=== PATIENT | female | born 1940 | race Caucasian/White ===

== ENCOUNTER 2017-12-20 12:00 | Outpatient (CLI) | payer MEDICARE, BC | END 2017-12-20 12:01 | disposition home or self-care (01) | LOC: BICMAMMO 12:00 | PROVIDERS: ATTEND Internal Medicine | DX: Z12.31 Encounter for screening mammogram for malignant neoplasm of breast (principal); Z85.3 Personal history of malignant neoplasm of breast; Z98.890 Other specified postprocedural states | CPT/HCPCS: 77063; 77067 ==

== ENCOUNTER 2018-02-20 01:06 | Emergency (ER) | payer MEDICARE, BC ==
[2018-02-20 02:02] LABS: #Eosinphils 0.3 thou/uL (0.0-0.7); #Lymphocytes 0.6 thou/uL (1.20-3.40); #Monocytes 0.8 thou/uL (0.11-0.59); #Neutrophils 13.2 thou/uL (1.40-6.50); %Basophils 0.2 % (0.0-1.0); %Eosinophils 1.8 % (0.0-10.0); %Lymphocytes 3.8 % (21.0-51.0); %Monocytes 5.2 % (0.0-10.0); Hemoglobin 15.1 g/dL (12.0-16.0); Mean Corpuscular HGB CONC 32.7 g/dL (32.0-36.0); Mean Corpuscular Hemoglobin 32.3 pg (27.0-31.0); Mean Platelet Volume 7.2 fL (7.4-10.4); Platelet Count 273 thou/uL (130-400); RBC Distribution Width 11.7 % (11.5-14.5); Red Blood Cell (RBC) Count 4.68 mill/uL (4.20-5.40); White Blood Cell (WBC) Count 14.8 thou/uL (4.8-10.8)
[2018-02-20 02:24] LABS: ALT (SGPT) 31 U/L (8-55); AST (SGOT) 26 U/L (5-34); Albumin 4.3 g/dL (3.4-4.8); Alkaline Phosphatase 64 U/L (40-150); Anion Gap 14 mmol/L (10-20); BUN (Urea Nitrogen) 18 mg/dL (9.8-20.1); Bilirubin, Total 0.8 mg/dL (0.2-1.2); Calc. Creatinine Clearance 0 mL/min (70-130); Calcium 9.7 mg/dL (7.8-10.44); Carbon Dioxide 25 mmol/L (23-31); Chloride 107 mmol/L (98-107); Estimated GFR-MDRD 70; Globulin 3.3 g/dL (2.4-3.5); Glucose 135 mg/dL (83-110); Potassium 4.1 mmol/L (3.5-5.1); Protein, Total 7.6 g/dL (6.0-8.3); Sodium 142 mmol/L (136-145)
[2018-02-20 02:29] LABS: Troponin I Less than 0.010 ng/mL (< 0.028)
[2018-02-20] MEDS ORDERED: Ondansetron ODT 4 MG TAB ONE (03:29)
== END 2018-02-20 05:13 | disposition home or self-care (01) ==
LOC: ERS 01:06
DX: R11.2 Nausea with vomiting, unspecified (principal); E03.9 Hypothyroidism, unspecified; Z79.899 Other long term (current) drug therapy
CPT/HCPCS: 36415; 80053; 82553; 83690; 84484; 85025; 93005; Q0162

== ENCOUNTER 2018-02-26 08:06 | Outpatient (CLI) | payer MEDICARE, BC ==
--- NOTE | 2018-02-26 10:24 | MRI ---
MRI LUMBAR SPINE NONCONTRAST: DATE: 02/26/18 HISTORY: 77-year-old female with M54.16 lumbar radiculopathy, bilateral, and low back pain. COMPARISON: none FINDINGS: For the purposes of this report, it will be assumed that there are 5 lumbar-type vertebrae. The vert ebral body heights are maintained. Conus medullaris terminates at L2-3, at the lower limits of normal. There is mild disc space narrowin g at all levels. No severe disc space narrowing at any level. Mild diffuse disc bulges at all levels. Cauda equina is arranged in a symmetrical distribution throughout the thecal sac. 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 No bone marrow edema. Perivertebral spaces demonstrate no major pathology. The findings by individual levels are as follows: T12-L1: No additional findings. L1-2: No additional findings. L2-3: No central or neural foraminal stenosis. L3-4: Mild ligamentum flavum thickening. Moderate degenerative facet changes. Mild bilateral neural foraminal stenosis, left greater than right. Mild central spinal canal stenosis. Mild to moderate the devika sac stenosis. L4-5: Somewhat prominent diffuse disc bulge. Bilateral severe degenerative facet hypertrophy. Modera te bilateral neural foraminal stenosis. Mild to moderate central spinal canal stenosis. Mild to moder ate ligamentum flavum thickening. L5-S1: Severe right degenerative facet hypertrophy. Moderate to severe left degenerative facet menendez es. No high grade central stenosis. Mild bilateral neural foraminal stenosis. A focal osteophyte campos ing from the left facet complex abuts the left exiting L5 nerve root without adelaide compression, and w ithout edema. IMPRESSION: 1. Lumbar spondylosis consisting of high grade facet osteoarthrosis at the lower levels. 2. Degenerative disc disease is relatively mild. ALEX Moreno POS: [facility]
== END 2018-02-26 08:07 | disposition home or self-care (01) ==
LOC: BICMRI 08:06
PROVIDERS: ATTEND Anesthesiology Pain Medicine
DX: M47.26 Other spondylosis with radiculopathy, lumbar region (principal); M51.16 Intervertebral disc disorders with radiculopathy, lumbar region
CPT/HCPCS: 72148

== ENCOUNTER 2018-09-06 15:21 | Outpatient (CLI) | payer MEDICARE, BC ==
--- NOTE | 2018-09-06 15:54 | ULT ---
Bilateral lower extremity venous Doppler ultrasound evaluation. HISTORY: Bilateral lower extremity edema. Multiple longitudinal and transverse images of the right and left lower extremity venous systems are obtained using multi hertz linear array transducer. Real-time, color flow and spectral waveform Doppler analysis used to evaluate the right and left lower extremity venous systems. No evidence of acute or old clot seen in the right or left common femoral, superficial femoral, femor al profunda, popliteal, posterior tibial veins and right and left greater saphenous veins. IMPRESSION: No evidence of right or left lower extremity deep venous thrombosis Transcribed Date/Time: 09/06/2018 4:02 PM
== END 2018-09-06 15:22 | disposition home or self-care (01) ==
LOC: BICULT 15:21
PROVIDERS: ATTEND Internal Medicine
DX: I82.409 Acute embolism and thrombosis of unspecified deep veins of unspecified lower extremity (principal); R60.0 Localized edema
CPT/HCPCS: 93970

== ENCOUNTER 2019-04-03 13:37 | Outpatient (CLI) | payer MEDICARE, BC ==
--- NOTE | 2019-04-03 14:45 | RAD ---
XR Knee Lt 2 View HISTORY: Bilateral primary osteoarthritis of knee, bilateral knee pain, right worse than left FINDINGS: No fracture or dislocation is identified. Degenerative changes are seen manifested by osteophyte form ation and joint space narrowing most prominent in the medial tibiofemoral and patellofemoral compartments.
--- NOTE | 2019-04-03 14:46 | RAD ---
XR Knee Rt 2 View HISTORY: Bilateral primary osteoarthritis of knee. Bilateral knee pain, worse on the right FINDINGS: No fracture or dislocation is identified. There are degenerative changes manifested by osteophyte for mation and joint space narrowing, most prominent in the medial tibiofemoral and patellofemoral compartments.
--- NOTE | 2019-04-03 15:19 | BD ---
BONE DENSITOMETRY USING DEXA: Date: 04/03/2019 HISTORY: Postmenopausal screening for osteoporosis. FINDINGS: Lumbar Spine: BMD (g/cm2) L1 0.972 T-Score: -0.2 Z-Score: 2.1 L2 1.044 T-Score: 0.1 Z-Score: 2.7 L3 1.080 T-Score: 0.0 Z-Score: 2.6 L4 1.122 T-Score: 0.6 Z-Score: 3.3 L1-L4 1.056 T-Score: 0.1 Z-Score: 2.6 Femoral Neck: 0.804 T-Score: -0.4 Z-Score: 1.8 Total Femur: 0.784 T-Score: -1.3 Z-Score: 0.6 10 year fracture risk for a major osteoporotic fracture is 8.8% and for a hip fracture is 1.1%. IMPRESSION: Osteopenia. POS: [facility]
== END 2019-04-03 13:38 | disposition home or self-care (01) ==
LOC: BICMAMMO 13:37
PROVIDERS: ATTEND Internal Medicine Rheumatology
DX: M81.0 Age-related osteoporosis without current pathological fracture (principal); M17.0 Bilateral primary osteoarthritis of knee; M85.859 Other specified disorders of bone density and structure, unspecified thigh
CPT/HCPCS: 77080

== ENCOUNTER 2019-09-02 15:48 | Outpatient (CLI) | payer MEDICARE, BC ==
--- NOTE | 2019-09-02 16:55 | MMO ---
Bilateral MAMMO Bilat Screen [facility]. CLINICAL HISTORY: Patient is 79 years old and is seen for screening. The patient has a history of lumpectomy procedure revealed invasive ductal left breast carcinoma. The patient has a history of left Excisional Biopsy in 1984 - BENIGN. VIEWS: The views performed were: . FILMS COMPARED: The present examination has been compared to prior imaging studies performed at [facility] on 05/13/2010, 07/20/2011, 07/22/2011 and 12/20/2017. This study has been interpreted with the assistance of computer-aided detection. MAMMOGRAM FINDINGS: The breasts are heterogeneously dense, which could obscure a lesion on mammography. There is a stable post-surgical scar seen in the left breast. There are no suspicious masses, suspicious calcifications, or new areas of architectural distortion. IMPRESSION: THERE IS NO MAMMOGRAPHIC EVIDENCE OF MALIGNANCY. A ROUTINE FOLLOW-UP MAMMOGRAM IN 1 YEAR IS RECOMMENDED. THE RESULTS OF THIS EXAM WERE SENT TO THE PATIENT. ACR BI-RADS Category 2 - Benign finding MAMMOGRAPHY NOTE: 1. A negative mammogram report should not delay a biopsy if a dominant of clinically suspicious mass is present. 2. Approximately 10% to 15% of breast cancers are not detected by mammography. 3. Adenosis and dense breasts may obscure an underlying neoplasm. Reported by: JAMES GONZALES MD Electonically Signed: [id number]
== END 2019-09-02 15:49 | disposition home or self-care (01) ==
LOC: BICMAMMO 15:48
PROVIDERS: ATTEND Internal Medicine
DX: Z12.31 Encounter for screening mammogram for malignant neoplasm of breast (principal); Z85.3 Personal history of malignant neoplasm of breast; Z91.89 Other specified personal risk factors, not elsewhere classified; Z98.890 Other specified postprocedural states
CPT/HCPCS: 77063; 77067

== ENCOUNTER 2020-01-06 14:32 | Outpatient (CLI) | payer MEDICARE, BC ==
--- NOTE | 2020-01-06 14:55 | RAD ---
XR Chest Pa Lat STANDARD HISTORY: Dyspnea COMPARISON: 10/07/2007 FINDINGS: The heart size is normal. The aorta is tortuous. The lungs are well expanded without focal areas of consolidation, pneumothorax or pleural effusions. There are degenerative changes in the spine. IMPRESSION: No radiographic evidence of acute cardiopulmonary process.
== END 2020-01-06 14:33 | disposition home or self-care (01) ==
LOC: BICRAD 14:32
PROVIDERS: ATTEND Internal Medicine Pulmonary Disease
DX: R06.00 Dyspnea, unspecified (principal)
CPT/HCPCS: 71046

== ENCOUNTER 2022-05-25 08:13 | Outpatient (CLI) | payer MEDICARE, BC | END 2022-05-25 08:14 | disposition home or self-care (01) | LOC: TBSIIMAG 08:13 | PROVIDERS: ATTEND Anesthesiology Pain Medicine | DX: M47.22 Other spondylosis with radiculopathy, cervical region (principal) | CPT/HCPCS: 72141 ==

== ENCOUNTER 2023-10-03 01:56 | Emergency (ER) | payer BC, MEDICARE | END 2023-10-03 06:56 | disposition home or self-care (01) | LOC: ERS 01:56 | DX: S60.221A Contusion of right hand, initial encounter (principal); S70.01XA Contusion of right hip, initial encounter; S80.01XA Contusion of right knee, initial encounter; W54.1XXA Struck by dog, initial encounter; Y93.K1 Activity, walking an animal | CPT/HCPCS: 70450; 71045; 72125; 72170 ==